=== PATIENT | male | born 1995 | race Caucasian/White ===

== ENCOUNTER → 2021-08-16 10:49 | Outpatient (BNVA) | payer SELFPAY | PROVIDERS: Visit Provider Emergency Medicine | DX: R30.0 Dysuria (principal) | CPT/HCPCS: 81000 ==

== ENCOUNTER → 2022-09-24 12:58 | Outpatient (BNVA) | payer BC, SELFPAY | PROVIDERS: Visit Provider Emergency Medicine | DX: R55 Syncope and collapse (principal); R42 Dizziness and giddiness; I49.3 Ventricular premature depolarization | CPT/HCPCS: 80048; 81000; 84443; 85025 ==

== ENCOUNTER 2022-12-04 14:05 | Outpatient (CLI) | payer BC, SELFPAY ==
--- NOTE | 2022-12-04 13:45 | USCV_ITS ---
seanJanette Age: 27 Gender: F : 1995 Exam Date: 12/04/2022 14:29 Ordering Phys: Ronald Singh M.D ([email or web address]) Technologist: Lobo Christopher Exam Location: [facility] – [place] Indication: palpitation and syncope BP: 108 / 70 HR: 69 Rhythm: Sinus Technical Quality: Adequate MEASUREMENTS (Male / Female) Normal Values 2D ECHO LV Diastolic Diameter PLAX 4.5 cm 4.2 - 5.9 / 3.9 - 5.3 cm LV Systolic Diameter PLAX 2.9 cm IVS Diastolic Thickness 0.4 cm 0.6 - 1.0 / 0.6 - 0.9 cm IVS Systolic Thickness 1.0 cm LVPW Diastolic Thickness 0.7 cm 0.6 - 1.0 / 0.6 - 0.9 cm LVPW Systolic Thickness 1.0 cm LVOT Diameter 2.0 cm LV Ejection Fraction 2D Teich 65.8 % LV Ejection Fraction MOD 2C 60.9 % LV Ejection Fraction 2C AL 60.3 % LA Diameter 3.0 cm LA Width 3.7 cm LA Height 3.8 cm RA Width 3.2 cm RA Height 4.1 cm Aorta at Sinotubular Diameter 2.2 cm IVC Diameter 1.3 cm M-MODE Aortic Annulus Diameter 2.1 cm MV E Point Septal Separation 0.3 cm DOPPLER AV Peak Velocity 135.3 cm/s LVOT Peak Velocity 90.0 cm/s AV Area Cont Eq vti 2.3 cm squared AV Area Cont Eq pk 2.2 cm squared MV Peak Velocity 120.0 cm/s MV Area PHT 6.5 cm squared Mitral E to A Ratio 2.0 MV E' Velocity 58.5 cm/s Mitral E to MV E' Ratio 5.7 Mitral E to LV E' Lateral Ratio 5.6 Mitral E to LV E' Septal Ratio 5.8 TR Peak Velocity 325.5 cm/s TR Peak Gradient 42.4 mmHg TR Mean Velocity 239.4 cm/s TR Mean Gradient 25.2 mmHg TR Velocity Time Integral 81.3 cm Right Atrial Pressure 3.0 mmHg Pulmonary Artery Systolic Pressu 45.4 mmHg PV Peak Velocity 79.0 cm/s RV Acceleration Time 0.1 s RV Ejection Time 0.3 s RV AcT/ET 0.5 FINDINGS Left Ventricle Left ventricle is normal in size. LV systolic function is normal with EF 55 to 60%. No regional wall motion abnormalities are seen. Right Ventricle Normal in size and function Right Atrium Normal in size Left Atrium Normal in size Mitral Valve Structurally normal mitral valve. Trace mitral regurgitation Aortic Valve Structurally normal aortic valve. No significant stenosis or regurgitation. Tricuspid Valve Trace tricuspid regurgitation. Insufficient TR jet to calculate RVSP Pulmonic Valve Not well visualized. Mild pulmonic regurgitation. Pericardium normal Aorta Normal in size IVC Appears to be normal CONCLUSIONS Left ventricle is normal in size. LV systolic function is normal with EF of 55 to 60% Trace mitral regurgitation Trace tricuspid regurgitation Mild pulmonic regurgitation No comparison studies are available Ronald Singh MD (Electronically Signed) Final Date: 18 December 2022 14:46 S
== END 2022-12-04 14:06 | disposition home or self-care (01) ==
LOC: RAD 14:09
PROVIDERS: Visit Provider Internal Medicine
DX: I49.3 Ventricular premature depolarization (principal); R55 Syncope and collapse; R00.2 Palpitations; I08.1 Rheumatic disorders of both mitral and tricuspid valves
CPT/HCPCS: 93306